=== PATIENT | female | born 1995 | race Caucasian/White ===

== ENCOUNTER 2017-03-20 23:42 | Observation (INO) ==
[2017-03-21 00:31] LABS: MANUAL DIFF NEEDED? NO
[2017-03-21 00:36] LABS: BASO% 0.4 % (0.0-0.8); EOS# 0.22 X1000 (0.0-0.7); EOS% 2.2 % (0.0-10.0); HEMATOCRIT 40.3 % (37.0-47.0); HEMOGLOBIN 13.9 g/dL (12.0-16.0); IMM GRAN# 0.02 X1000 (0.0-0.04); IMM GRAN% 0.2 % (0.0-0.5); LYMPH# 2.45 X1000 (1.2-3.4); LYMPH% 24.1 % (20.5-51.1); MCH 30.2 PG (27-31); MCHC 34.5 g/dL (33-37); MCV 87.4 FL (81-99); MONO# 0.72 X1000 (0.11-0.59); MONO% 7.1 % (1.7-9.3); MPV 10.7 FL (7.4-10.4); PLT 271 X1000 (130-400); RBC 4.61 XMIL (4.2-5.4)
[2017-03-21 01:02] LABS: BE -1.8 mmoll (-3.0-3.0); BLOOD TYPE ARTERIAL; DRAW SITE R BRACHIAL; O2(CT) 16.8 mL/dL (15.0-23.0); PCO2(98.6) 39 mmHg (35-45); PO2(98.6) 59 mmHg (60-100); SAMPLE BLOOD; SAO2 94.1 % (95.0-100.0); THB 13.4 g/dL (11.5-17.4); pH(98.6) 7.38 (7.35-7.45)
[2017-03-21 01:04] LABS: AGAP 16; ALBUMIN 4.1 g/dL (3.5-5.0); ALKALINE PHOSPHATASE 54 U/L (32-104); BUN 12 mg/dL (8-22); CALCIUM 8.7 mg/dL (8.8-10.2); CHLORIDE 106 mmol/L (98-107); COSMO 281; GOT 14 U/L (10-30); GPT 11 U/L (10-36); POTASSIUM 3.3 mmol/L (3.5-5.1); SODIUM 141 mmol/L (136-145); TCO2 19 mmol/L (25-35); TOTAL PROTEIN 7.1 g/dL (6.3-8.3)
[2017-03-21 01:09] LABS: ALLEN TEST YES; MODALITY ROOM AIR
--- NOTE | 2017-03-21 01:33 | EKG Report ---
Test Performed on : 03/21/2017 00:47:25 AM Test Reason : dyspnea Blood Pressure : / mmHG Vent. Rate : 079 BPM Atrial Rate : 079 BPM P-R Int : 162 ms QRS Dur : 092 ms QT Int : 386 ms P-R-T Axes : 009 052 023 degrees QTc Int : 442 ms Normal sinus rhythm. Normal ECG When compared with ECG of 10-DEC-2016 02:17, No significant change was found Unconfirmed Result
[2017-03-21] MEDS ORDERED: NS 1,000 ML ONE ×2 (02:36→05:53)
[2017-03-21] MEDS ORDERED: NS 1,000 ML IV ONE ×2 (02:40→04:29)
[2017-03-21 02:41] LABS: UR AMPHETAMINES QUAL NONE DETECTED (NONE DETECT); UR BARBITUATES QUAL NONE DETECTED (NONE DETECT); UR BENZODIAZEPIN QUAL NONE DETECTED (NONE DETECT); UR CANNABINOIDS QUAL NONE DETECTED (NONE DETECT); UR COCAINE QUAL NONE DETECTED (NONE DETECT); UR MDMA QUAL NONE DETECTED (NONE DETECT); UR METHADONE QUAL NONE DETECTED (NONE DETECT); UR METHAMPHETAMINE QUAL NONE DETECTED (NONE DETECT); UR OPIATES QUAL NONE DETECTED (NONE DETECT); UR OXYCODONE QUAL NONE DETECTED (NONE DETECT); UR PCP QUAL NONE DETECTED (NONE DETECT); UR TCA QUAL NONE DETECTED (NONE DETECT)
[2017-03-21] MEDS ORDERED: TYLENOL PO PRN (04:29)
[2017-03-21] MEDS ORDERED: PHENERGAN IV PRN (04:29)
[2017-03-21] MEDS ORDERED: SODIUM CHLORIDE 0.9% INJ ONE (04:29)
[2017-03-21] MEDS ORDERED: SODIUM CHLORIDE 0.9% INJ PRN (05:44)
--- NOTE | 2017-03-21 07:16 | Diag Imaging Result Document ---
PROCEDURE NAME: CHEST-PORTABLE - 03/21/2017 PORTABLE CHEST: COMPARISON: Compared to 12/13/2015. FINDINGS: The left hemidiaphragm is elevated. The heart is not enlarged. The vessels are not distended. No pneumonia. No pleural effusions identified. IMPRESSION: Stable chest.
--- NOTE | 2017-03-21 07:43 | Diag Imaging Result Document ---
PROCEDURE NAME: HEAD W/O CONTRAST - 03/21/2017 CT BRAIN WITHOUT CONTRAST: TECHNIQUE: Dose reduction protocol. FINDINGS: No parenchymal hemorrhage. No epidural or subdural hematoma. No subarachnoid hemorrhage. No mass identified on this noncontrasted exam. No midline shift. No hydrocephalus. No sinus opacification. IMPRESSION: No hemorrhage. Negative brain CT without contrast. A preliminary report was given at 2:09 a.m.
--- NOTE | 2017-03-21 08:40 | DISCHARGE SUMMARY ---
DATE: 03/21/2017 DISCHARGE DIAGNOSES: 1. Pseudoseizure. 2. Acute stress reaction. 3. Reflux. 4. Chronic tobacco abuse. CONSULTATIONS: None. PROCEDURES: None. BRIEF HOSPITAL COURSE: The patient is a 21-year-old female who was admitted as noted on the HPI, treated in usual fashion. Placed on seizure protocol. Thankfully she had no further events while she was in the hospital. On discharge, patient is awake, alert, and oriented. She is in no distress. Discussed her that she needs to follow up with her primary care physician in 1-2 weeks. She certainly needs outpatient life counseling to assist with her acute stress reaction. Discussed with her that she needs to stop smoking as well. TIME SPENT: 35 minutes were spent in discharge planning. cc: Freddie Summers MD
--- NOTE | 2017-03-21 08:59 | HISTORY AND PHYSICAL ---
SUBJECTIVE: Seizure. HISTORY OF PRESENT ILLNESS: Patient is a 21-year-old female, who presented to the emergency department with chief complaint of a seizure-type episode. Her and her boyfriend had apparently been drinking last night. They were in her room. While they were engaged in intercourse, she noted that she started having increased shortness of breath and could not breathe. She ran outside. Her boyfriend brought the inhaler to her. States she started shaking all over. He laid her down, called the ambulance service which gave her Valium and brought her to the emergency department. She notes that she has been relatively stressed the past couple of weeks. She has been having palpitations for the past week. Denies any fevers, chills. Denies any cough, congestion. ALLERGIES: Tramadol. MEDICATIONS: Omeprazole 40, ibuprofen p.r.n. REVIEW OF SYSTEMS: As noted above. Denies any headaches, blurred vision, change in vision. Denies any focalized numbness, tingling, weakness. Does state that she had loss of consciousness during the episode, although interestingly she did not fall to the ground during the episode (he was able to sit her down). She was immediately awake, alert afterwards. Had no loss of bowel or bladder during the episode. She has no skin rashes. No GI or issues currently. PAST MEDICAL HISTORY: Reflux, history of Parsonage Olsen syndrome. FAMILY HISTORY: Noncontributory. SOCIAL HISTORY: She smokes. Does drink occasionally. Denies any other illicit substances. Her marital status is listed as , although her boyfriend is the one that was involved with the seizure-type activity last night. PHYSICAL EXAMINATION: VITAL SIGNS: Temperature 97, pulse 93, respiratory 18, BP 102/44. GENERAL: Patient is awake, alert, oriented. She is currently in no respiratory distress. Pleasant to talk with. NECK: Supple. CV: Regular rate. CHEST: Relatively clear. ABDOMEN: Soft. EXTREMITIES: Moves all extremities. NEUROLOGIC: No focal changes. SKIN: Warm and dry. No rashes. LABS: Reviewed. CBC and CMP essentially normal. Urine drug screen negative. Urine test is negative. ASSESSMENT: Seizure-type activity, although certainly by history this appears to be more of a pseudo seizure. She apparently had a second episode while she was in the emergency room and was shaking and thrashing about on the exam table. When she was asked her name she was able to stop shaking and answer the question, and then unfortunately this seizure continued and she continued to shake. PLAN: We will admit patient to the hospital overnight. Her blood pressures were low in the ER; I certainly feel this was secondary to the Valium that was given by the ambulance service. Further orders as needed. cc: Freddie Summers MD
--- NOTE | 2017-03-21 13:23 | PROGRESS NOTE ---
DATE: 03/21/2017 Ms. Mae's family called myself and the nursing staff to the room, stating that she was having a seizure. They stated that the patient got up to go to the bathroom and she was able to walk herself to the bathroom, walk herself back, and after lying in the bed she began to have a seizure. On our entry into the room the patient was lying on her stomach with her eyelids fluttering. There was no generalized body movement. When we spoke to her and called her name she did stop eye fluttering, turned her head to look at me then, and then closed her eyes and her eyes began to flutter once again. When I tried to open her eyes she fought against me, closing her eyes tight. Once I quit attempting to open her eyes, her eyelids began to flutter once again. When I raised her arm to attempt to drop it on her face she did move her arm out almost straight and dropped it down to the bed. During blood pressure she did hold her arms still to allow her blood pressure to be taken. This lasted approximately 2 minutes. During this time. There was no generalized body movements and no facial movement other than her eyelids fluttering. There was no incontinence. Vital signs were stable at this time. Once eyes stopped fluttering, she told the staff, I had a seizure. Dictated by JOCY Arzate for Freddie Summers MD cc: JOCY Arzate MD [facility]
[2017-03-21 15:53] VITALS: BP 109/53
--- NOTE | 2017-03-21 16:32 | Diag Imaging Result Document ---
PROCEDURE NAME: MRI BRAIN W/O CONTRAST - 03/21/2017 MRI BRAIN WITHOUT. TECHNIQUE: Multiple attempts were made at IV access, but were unsuccessful. Axial, sagittal, and coronal images were obtained in multiple sequences. FINDINGS: No recent infarct. No mass or midline shift. No hydrocephalus. No epidural or subdural fluid collection. No sinus opacification. Mild mucosal thickening in the ethmoid and maxillary sinuses. IMPRESSION: 1. No mass or infarct. 2. Minimal sinusitis.
== END 2017-03-21 19:00 | disposition home or self-care (01) ==
LOC: P.ED 23:42 → P.MEDSURG 23:42
PROVIDERS: ATTEND Family Medicine

== ENCOUNTER 2019-08-19 20:50 | Observation (INO) ==
[2019-08-19] MEDS ORDERED: MOTRIN PO ONE (21:02)
[2019-08-19 21:24] LABS: BASO# 0.02 X1000 (0.0-0.2); BASO% 0.5 % (0.0-0.8); EOS# 0.01 X1000 (0.0-0.7); EOS% 0.2 % (0.0-10.0); HEMATOCRIT 40.4 % (37.0-47.0); HEMOGLOBIN 13.3 g/dL (12.0-16.0); LYMPH# 1.44 X1000 (1.2-3.4); LYMPH% 34.7 % (20.5-51.1); MCH 28.2 PG (27-31); MCHC 32.9 g/dL (33-37); MCV 85.8 FL (81-99); MONO# 0.49 X1000 (0.11-0.59); MONO% 11.8 % (1.7-9.3); NEUT# 2.19 X1000 (1.4-6.5); NEUT% 52.8 % (42.2-75.2); PLT 180 X1000 (130-400); RBC 4.71 XMIL (4.2-5.4); RDW 13.4 % (11.5-14.5); WBC 4.15 X1000 (4.8-10.8)
[2019-08-19 21:44] LABS: AGAP 16; ALBUMIN 4.2 g/dL (3.5-5.0); ALKALINE PHOSPHATASE 61 U/L (32-104); BUN 8 mg/dL (8-22); CALCIUM 9.1 mg/dL (8.8-10.2); CHLORIDE 102 mmol/L (98-107); COSMO 276; CREATININE 0.7 mg/dL (0.5-0.9); ESTIMATED GFR > 60; GLUCOSE 97 mg/dL (70-104); GOT 21 U/L (10-30); GPT 19 U/L (10-36); POTASSIUM 3.8 mmol/L (3.5-5.1); SODIUM 139 mmol/L (136-145); TCO2 22 mmol/L (25-35); TOTAL PROTEIN 7.5 g/dL (6.3-8.3)
[2019-08-19] MEDS ORDERED: NS 1,000 ML IV ONE (22:05)
[2019-08-19] MEDS ORDERED: MORPHINE IV ONE (22:05)
[2019-08-19] MEDS ORDERED: ZOFRAN IV ONE (22:05)
--- NOTE | 2019-08-19 22:09 | PROVIDER DOCUMENTATION ---
HPI-General Adult - General Chief Complaint: General Adult Stated Complaint: POSS ALLERGIC REACTION Time Seen by Provider: 08/19/19 21:34 Source: patient Allergies/Adverse Reactions: Patient Allergies Allergy/AdvReac Type Severity Reaction Status Date / Time tramadol Allergy NAUSEA/VOMI Verified 08/19/19 21:01 TING Home Medications: Home Medication List Medication Instructions Recorded Confirmed Last Taken Type NK [No Home Medications] 03/21/17 03/21/17 Unknown History - History of Present Illness -Gen Adult Nature of Presenting Problems: Patient is a 23 yowf who presents to the ED with multiple complaints. Reports fever, dizziness, headache, n/v/d, chest tightness worse with deep inspiration, and generalized abdominal pain since Saturday. The chest pain is located under her right breast. States she had a possible STI exposure and was treated empirically with abx at a clinic on Saturday and the s/s developed the next day. States she was asymptomatic when she was treated. Denies dysuria, abnormal vaginal discharge, pelvic pain, cough, sore throat, or any other complaints. She is non- toxic in appearance. Review of Systems - Adult - REVIEW OF SYSTEMS - ADULT Constitutional: reports: see HPI Eyes: reports: no symptoms reported Ears, Nose, Mouth & Throat: reports: no symptoms reported Cardiovascular: reports: see HPI, chest pain. denies: palpitations, syncope Respiratory: reports: no symptoms reported Gastrointestinal: reports: see HPI Genitourinary: reports: see HPI. denies: flank pain Musculoskeletal: reports: no symptoms reported Integumentary: reports: no symptoms reported Neurological: reports: see HPI, dizziness/vertigo, headache/migraines. denies: ataxia, loss of balance, numbness, paresthesia, seizure, slurred speech, syncope, tremors Psychiatric: reports: no symptoms reported Endocrine: reports: no symptoms reported Hematologic/Lymphatic: reports: no symptoms reported Allergic/Immunologic: reports: no symptoms reported All Other Systems: Reviewed and Negative Past History - Adult - PAST MEDICAL HISTORY-ADULT Review of Records: reports: Nursing Assessment Review, Medications Reviewed, Social history reviewed & non-contributory. 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) Psychiatric: reports: denies history Endocrine/Immune: reports: denies history Other Conditions: reports: denies history Additional History: Parsonage-Olsen syndrome - PRIOR SURGERIES/PROCEDURES Surgical/Procedure History: reports: none, other (wisdom teeth removal ) - PRIOR HOSPITALIZATIONS Prior Hospitalizations: reports: none - IMMUNIZATION STATUS Childhood Immunizations: See Nurse Assessment Flu Vaccine: See Nurse Assessment - FAMILY HISTORY Family History: hereditary disease - SOCIAL HISTORY Smoking: non-smoker Substance Use: none/never Alcohol Use Frequency: occasionally Physical Exam-General - PHYSICAL EXAM-ADULT Initial Vital Signs Reviewed: Yes - CONSTITUTIONAL General Appearance: alert, no apparent distress. negative: lethargic, slow to respond - EYES Eyes: PERRL/EOMI, pink conjunctivae - HEAD, EARS, NOSE, MOUTH & THROAT HENMT: normocephalic/atraumatic, moist mucous membranes, normal ENT inspection, TMs normal, pharynx normal - NECK Neck: non-tender, full range of motion, supple, normal inspection. negative: lymphadenopathy - RESPIRATORY Respiratory: lungs clear, normal breath sounds, no respiratory distress, no accessory muscle use - CARDIOVASCULAR Cardiovascular: regular rate, rhythm, no gallop, no murmur - GASTROINTESTINAL (ABDOMEN) Abdominal Exam: normal bowel sounds, soft, no organomegaly, no pulsatile mass, tenderness (Moderate diffuse, more in RUQ). negative: distended, guarding, rigid, rebound - MUSCULOSKELETAL Back Exam: normal inspection, no CVA tenderness Extremity: normal range of motion, non-tender, normal gait, normal inspection - SKIN Integumentary: normal color, warm/dry. negative: cyanosis, diaphoresis, jaundice, mottled, pallor - NEUROLOGIC Neurologic: grossly normal, no motor/sensory deficits - PSYCHIATRIC Psych/Mental Status: normal mood/affect, normal thought content, normal thought process, oriented x 3 Progress - PLAN OF CARE/RESULTS Progress/Plan/Lab Results: Vital Signs - 8 hr 08/19/19 20:55 Temperature 102.0 F H Pulse Rate 101 H Respiratory Rate 16 Blood Pressure 102/67 O2 Sat by Pulse Oximetry 97 Laboratory Results - last 24 hr 08/19/19 08/19/19 21:16 21:16 WBC 4.15 L RBC 4.71 Hgb 13.3 Hct 40.4 MCV 85.8 MCH 28.2 MCHC 32.9 L RDW Std Deviation 13.4 Plt Count 180 MPV 11.0 H Immature Gran % (Auto) 0.0 Neut % (Auto) 52.8 Lymph % (Auto) 34.7 Evangeline % (Auto) 11.8 H Eos % (Auto) 0.2 Baso % (Auto) 0.5 Immature Gran # (Auto) 0.00 Neut # (Auto) 2.19 Lymph # (Auto) 1.44 Evangeline # (Auto) 0.49 Eos # (Auto) 0.01 Baso # (Auto) 0.02 Sodium 139 Potassium 3.8 Chloride 102 Carbon Dioxide 22 L Anion Gap 16 BUN 8 Creatinine 0.7 Estimated GFR/1.73 m2 > 60 BUN/Creatinine Ratio 11 Glucose 97 Calculated Osmolality 276 Calcium 9.1 Total Bilirubin 0.30 AST 21 ALT 19 Alkaline Phosphatase 61 Total Protein 7.5 Albumin 4.2 Globulin 3.0 Albumin/Globulin Ratio 1.0 Orders Category Date Time Status ED: Urine Bedside ORDERED Care 08/19/19 22:04 Ordered CHEST-2 VIEWS [RAD] Stat Exams 08/19/19 22:[address] ABD/PELVIS W/IV CONT ONLY [CT] Stat Exams 08/19/19 22:05 Ordered AMYLASE [CHEM] Stat Lab 08/19/19 22:06 Uncollected CBC WITH DIFF [HEME] Stat Lab 08/19/19 21:16 Completed CMP [COMPREHENSIVE METABOLIC PANEL] [CHEM] Stat Lab 08/19/19 21:16 Completed LIPASE [CHEM] Stat Lab 08/19/19 22:06 Uncollected TROPONIN T Stat Lab 08/19/19 22:05 Ordered UA NIMS W/REFLEX CULT [URINALYSIS] Stat Lab 08/19/19 22:05 Uncollected Ibuprofen [Motrin] Med 08/19/19 21:02 Discontinued 800 mg PO NOW ONE Morphine Med 08/19/19 22:05 Once 4 mg IV NOW ONE Ns 1000 ml IV Bolus X1 Med 08/19/19 22:05 Ordered 0.9% Sodium Chloride Inj [Ns] 1,000 ml IV 999 mls/hr Ondansetron [Zofran] Med 08/19/19 22:05 Once 4 mg IV NOW ONE EKG [EKG] Stat Ther 08/19/19 21:02 Ordered Result Diagrams: 08/19/19 21:16 08/19/19 21:16 - REASSESSMENT Reassessment #1 Time Reassessed: 22:41 Status: other (Pt refused contrast dye for CT stating that when she received contrast in the past she "burned all over" and had breathing difficulty. CT order modified and pt to CT.) Reassessment #2 Time Reassessed: 23:00 Status: improving (Pain and nausea resolved with meds.) Reassessment #3 Time Reassessed: 23:51 Status: other (Waiting on CT report, radiology inquiry made.) - EKG 1 Time of EKG reading by physician:: 21:05 EKG Read and Signed by:: Kwesi Tanner EKG Interpretation (*Must complete 3 of following elements*): Abnormal Rate: 93 Rhythm: NSR-incomplete RBBB, nonspecific t wave abnormality QRS: normal - XRAY 1 XRAY Study: Chest (Lungs normally expanded and clear. No infiltrates. Over read by Dr. Tanner.) - CHANGE OF SHIFT REPORT (ED Provider) 1 Report Given and Care Transferred to:: Dr. Tanner Time of Transfer: 00:04 Items Pending: CT/MRI Results Departure - Departure Referrals and Follow-Ups: Jaspal Lema MD [Primary Care Provider] - Attestation - Physician/ LORRIE Attestation Patient care was provided by Advanced Practice Provider:: Yes Advanced Practice Provider:: Jenna Pisano Advanced Practice Provider documentation review:: The Mid-level provider documentation, treatment plan and medical decision making was reviewed by the physician who agrees with all treatment and medical decision making by the P. The physician spent face to face time with patient:: No Advanced Practice Provider documentation review:: Supervising physician onsite and consulted in the evaluation and care of this patient. The physician did not have a face to face encounter with the patient.
--- NOTE | 2019-08-19 22:11 | EKG Report ---
Test Performed on : 08/19/2019 9:02:04 PM Test Reason : chest pain Blood Pressure : / mmHG Vent. Rate : 093 BPM Atrial Rate : 093 BPM P-R Int : 134 ms QRS Dur : 092 ms QT Int : 332 ms P-R-T Axes : 018 066 025 degrees QTc Int : 412 ms Normal sinus rhythm. Incomplete right bundle branch block Nonspecific T wave abnormality Abnormal ECG When compared with ECG of 21-MAR-2017 00:47, Nonspecific T wave abnormality now evident in Anterior leads Unconfirmed Result
[2019-08-19 22:23] LABS: AMYLASE 46 U/L (20-200); LIPASE 34 U/L (13-60)
[2019-08-19 22:25] LABS: BILIRUBIN URINE NEGATIVE (NEGATIVE); BLOOD URINE NEGATIVE (NEGATIVE); CLARITY CLEAR (CLEAR); COLOR YELLOW; GLUCOSE URINE NEGATIVE (NEGATIVE); KETONE URINE TRACE mg/dL (NEGATIVE)
[2019-08-19 22:26] LABS: LEUKOCYTES URINE NEGATIVE (NEGATIVE); NITRITE URINE NEGATIVE (NEGATIVE); PROTEIN URINE NEGATIVE (NEGATIVE); UROBILINOGEN URINE NORMAL
[2019-08-19 22:36] LABS: URINE BACTERIA 1+ /HFP; URINE CAST NONE SEEN /LPF; URINE CRYSTAL NONE SEEN /HPF; URINE EPITHELIAL CELLS <10 /HPF (<10); URINE SOURCE CLEAN CATCH; URINE WBC <10 /HPF (<10); URINE YEAST NONE SEEN /HPF
--- NOTE | 2019-08-19 23:00 | ED EKG INTERP ---
This chart was entered by Alejandrina Macias Scribe, acting as scribe for Kwesi Tanner MD. EKG Interpretation - EKG Time of EKG reading by physician:: 21:02 EKG Read and Signed by:: Kwesi Tanner EKG Interpretation (*Must complete 3 of following elements*): Abnormal (non specific t wave abnormality) Rate: 93 Rhythm: nsr [place]: normal QRS: RBB (incomplete RBBB) SC Interval: normal Attestation - Physician/ LORRIE Attestation Patient care was provided by Advanced Practice Provider:: Yes Advanced Practice Provider documentation review:: The Mid-level provider documentation, treatment plan and medical decision making was reviewed by the ysician who agrees with all treatment and medical decision making by the MLP. The physician spent face to face time with patient:: No Advanced Practice Provider documentation review:: Supervising physician onsite and consulted in the evaluation and care of this patient. The physician did not have a face to face encounter with the patient. This chart was documented by the indicated scribe, (Alejandrina Macias Scribe) and accurately reflects the services I performed and decisions made by me, Kwesi Tanner MD, as attested by the provider's signature.
[2019-08-20] MEDS ORDERED: LOVENOX 1 MG/KG SUBQ ONE (02:32)
[2019-08-20] MEDS ORDERED: LOVENOX ONE (03:01)
[2019-08-20] MEDS ORDERED: NS 1,000 ML IV ONE (04:09)
[2019-08-20] MEDS ORDERED: LEVAQUIN 500 MG/D5W 500 MG/100 ML IVPB IV ONE (04:11)
--- NOTE | 2019-08-20 07:34 | Diag Imaging Result Doc PS360 ---
EXAM: CT ABDOMEN/PELVIS W/O CONTRAST - 08/19/2019 HISTORY: diffuse abd pain/tenderness, fever, n/v/d TECHNIQUE: CT abdomen/pelvis without contrast. No contrast administered per request of the referring provider, apparently due to history of allergy to IV contrast. COMPARISON: 09/18/2016 CT abdomen/pelvis with contrast FINDINGS: There is some limitation of detail without administered contrast. The visualized lung bases appear essentially clear. There are postsurgical changes from interval surgery of the left hemidiaphragm region. There is a possible small hiatal hernia. The spleen is borderline enlarged. There are no other substantial abnormalities of the liver, spleen, adrenal glands, or pancreas identified. There are no calcified gallstones or pericholecystic inflammation. There is no renal stone or hydronephrosis identified. There is no perinephric edema. There are no substantially enlarged lymph nodes identified. There is no evidence of bowel obstruction. What appears to represent the appendix is unremarkable. There is no substantial bowel wall thickening identified. There is a moderate amount retained fecal debris in the right colon. There is a 2.3 x 2.4 cm round low density structure at the right abdominal pelvic junction. This appears essentially stable compared to 09/18/2016 but have decreased in size compared to 10/14/2014, when it measured 4.4 x 5.4 cm. This apparently represents the right ovary, which contained a cyst on the 10/14/2024 exam. There is no free air, free fluid, or abscess identified. IMPRESSION: Postsurgical changes of left hemidiaphragm region. Borderline splenomegaly. Possible small hiatal hernia. Possible constipation. No other visible acute abnormality. The director of special education radiologist provided preliminary results at 12:22 AM on 08/20/2019. This exam was performed using automated exposure control, adjustment of mA or kV according to patient size, and/or use of iterative reconstruction technique. Electronically signed by Nadeem 08/20/2019 7:32 AM
--- NOTE | 2019-08-20 07:36 | Diag Imaging Result Doc PS360 ---
EXAM: CHEST-2 VIEWS - 08/19/2019 HISTORY: cp TECHNIQUE: Chest two views COMPARISON: 03/21/2017 portable chest FINDINGS: Heart size is normal. There are changes from interval surgery at the left hemidiaphragm region, with the left hemidiaphragm no longer being elevated. Lungs otherwise appear clear. There is no pleural effusion or pneumothorax identified. IMPRESSION: Postsurgical changes of left hemidiaphragm region. No evidence of acute disease. Electronically signed by Nadeem 08/20/2019 7:34 AM
--- NOTE | 2019-08-20 07:50 | Vascular Study Report ---
EXAM: Venous U/S Bilateral Legs - 08/20/2019 HISTORY: Yana operation chest pain fever sob TECHNIQUE: Bilateral lower extremity Doppler venous ultrasound COMPARISON: None. FINDINGS: The deep veins of the bilateral lower extremities demonstrate flow, with compressibility and augmentation. There are no filling defects identified. IMPRESSION: No evidence of deep venous thrombosis in either lower extremity. Electronically signed by Nadeem 08/20/2019 7:48 AM
--- NOTE | 2019-08-20 10:55 | Diag Imaging Result Doc PS360 ---
EXAM: LUNG SCAN / VQ 08/20/2019 HISTORY: chest pain sob TECHNIQUE: Dilation perfusion lung scan, 39.2 mCi of technetium 99m DTPA aerosol for the ventilation portion and 5.8 mCi of technetium 99m MAA for the perfusion portion of the study. COMMENT: There is no evidence of ventilation/perfusion mismatch. There is no apparent perfusion defect. IMPRESSION: Normal study. Electronically signed by Merritt Ayon 08/20/2019 10:53 AM
[2019-08-20] MEDS ORDERED: ZOFRAN IV PRN (12:50)
[2019-08-20] MEDS ORDERED: TYLENOL PO PRN (12:50)
[2019-08-20 15:33] VITALS: BP 101/51
--- NOTE | 2019-08-21 00:57 | HISTORY AND PHYSICAL ---
CHIEF COMPLAINT: Fever. HISTORY OF PRESENT ILLNESS: The patient is a 23-year-old female who presented to the emergency department with a variety of complaints. Notes that she has chronic reflux. Has been having muscle aches. Has been having fever of 102 to 103 for several days. She has felt dizzy, headache, nausea, vomiting. Has had diarrhea, chest tightness. Notes that the chest tightness was on the right side, only worsened with deep inspiration, but not really changed with any movement. Notes that she has been exposed to an STD on Saturday. INCOMPLETE REPORT - DICTATION ENDS HERE cc: Freddie Summers MD
--- NOTE | 2019-08-21 00:59 | HISTORY AND PHYSICAL ---
CONTINUATION REPORT: FAMILY HISTORY: Noncontributory. SOCIAL HISTORY: Does not smoke, drink or use illicit substances. PHYSICAL EXAMINATION: VITAL SIGNS: Reviewed. She actually did have a fever of 102 upon presenting to the ER, but has been afebrile since. Pulse 90s to 100, respiratory 16, BP 102/67, saturation 97% on room air. GENERAL: Patient is awake, alert. She is in no distress. HEENT: Normocephalic. NECK: Supple. CARDIOVASCULAR: Regular rate. No murmurs. CHEST: Clear. ABDOMEN: Soft, obese, nondistended. EXTREMITIES: Moves all extremities. NEUROLOGIC: No changes. LABORATORIES: CBC, CMP normal. Urine is clear. Chest x-ray clear. CT abdomen and pelvis clear. She did have a CT without contrast as she noted that contrast caused her to burn all over. ASSESSMENT: 1. Febrile illness, likely viral. 2. Nausea, vomiting. 3. Chest tightness, again likely viral, hurts only with deep inspiration. 4. Abdominal pain, appears to have improved as patient is requesting to eat. PLAN: We will admit patient to the hospital. We will follow. We will not place her on antibiotics as everything appears to be viral with all other workup thus far being negative and we will continue to follow. cc: Freddie Summers MD
--- NOTE | 2019-08-21 05:36 | DISCHARGE SUMMARY ---
ADMISSION DATE: 08/19/2019 DISCHARGE DATE: 08/20/2019 DISCHARGE DIAGNOSIS: 1. Febrile illness, likely viral. 2. Nausea and vomiting, resolved. She ate a full lunch and breakfast. 3. Muscle aches, appear improved. 4. Abdominal pain, appears improved as she ate a full lunch and breakfast. 5. Chest tightness. 6. Obesity. CONSULTATIONS: None. PROCEDURES: None. BRIEF HOSPITAL COURSE: The patient is a 23-year-old female who presented last night to the ER with febrile illness of 102. Thankfully, workup thus far has been negative. She has had no further complications. Has been able to eat and drink without any difficulty. After we discussed with patient that most likely her symptoms were viral given a negative workup so far, patient demanded that she be discharged. DISPOSITION: As patient is demanding that she be discharged, we will comply. Discussed with her that should symptoms worsen or come back that she certainly would need to be seen and re-evaluated again. We will not start antibiotics at this point. cc: Freddie Summers MD
== END 2019-08-20 17:07 | disposition home or self-care (01) ==
LOC: P.ED 20:50 → P.MEDSURG 20:50
PROVIDERS: ATTEND Family Medicine